=== PATIENT | male | born 1960 | race Caucasian/White ===

== ENCOUNTER → 2016-10-22 | Outpatient (CLI) | payer BC ==
[2016-10-22 11:38] LABS: Basophils # (A) 0.1 k/uL (0-0.2); Basophils % (A) 1 %; CH 32.6; CHCM 33.7; Eosinophils # (A) 0.1 k/uL (0-0.7); Eosinophils % (A) 2 %; HCT 54.3 % (39.0-53.0); HGB 18.1 gm/dL (13.0-17.5); Luc # (Auto) 0.17; Luc % (Auto) 3; Lymphocytes # (A) 1.7 k/uL (1.0-4.8); Lymphocytes % (A) 29 %; MCH 32.4 pg (25.0-35.0); MCHC 33.3 g/dL (31.0-37.0); MCV 97.2 fL (80.0-100.0); Mean Platelet Volume 8.2; Monocytes # (A) 0.4 k/uL (0-1.0); Monocytes % (A) 7 %; Neutrophils # (A) 3.4 k/uL (1.3-7.7); Neutrophils % (A) 58 %; RBC 5.59 m/uL (4.30-5.90); RDW 14.4 % (11.5-15.5); WBC 5.9 k/uL (3.8-10.6)
[2016-10-22 11:46] LABS: ALT 52 U/L (21-72); AST 30 U/L (17-59); Alkaline Phosphatase 64 U/L (38-126); Anion Gap 13 mmol/L; Blood Urea Nitrogen 19 mg/dL (9-20); Calcium 9.7 mg/dL (8.4-10.2); Carbon Dioxide 26 mmol/L (22-30); Chloride 103 mmol/L (98-107); Cholesterol 181 mg/dL (<200); Glucose 83 mg/dL (74-99); HDL Cholesterol 64 mg/dL (40-60); Non-African American GFR(MDRD) >60 (>60 ml/min/1.73 sqM); Potassium 4.5 mmol/L (3.5-5.1); Sodium 142 mmol/L (137-145); Total Bilirubin 0.9 mg/dL (0.2-1.3); Total Protein 7.5 g/dL (6.3-8.2); Triglycerides 111 mg/dL (<150)
[2016-10-22 12:15] LABS: Prostate Specific Antigen 1.09 ng/mL (0.00-4.00)
[2016-10-22 13:06] LABS: Hepatitis C Virus IgG Ab Negative (Negative); Hepatitis C Virus IgG Index 0.04
== END | disposition home or self-care (01) ==
LOC: LABWHC1 08:11
PROVIDERS: ATTEND Internal Medicine
DX: Z00.00 Encounter for general adult medical examination without abnormal findings (principal); Z13.9 Encounter for screening, unspecified; Z12.5 Encounter for screening for malignant neoplasm of prostate
CPT/HCPCS: 36415; 80053; 80061; 84153; 85025; 86803

== ENCOUNTER 2017-05-21 07:58 | Inpatient (IN) | payer BC ==
[2017-05-21] MEDS ORDERED: SODIUM CHLORIDE 0.9% 1,000 ML IV STA ×2 (08:05)
[2017-05-21] MEDS ORDERED: RX INFO: IV CONTRAST WAS GIVEN 1 EACH MISC MISCELLANE PRN (08:05)
[2017-05-21 08:32] LABS: Basophils % (A) 1 %; Eosinophils # (A) 0.1 k/uL (0-0.7); Eosinophils % (A) 2 %; HGB 16.1 gm/dL (13.0-17.5); Lymphocytes # (A) 1.5 k/uL (1.0-4.8); Lymphocytes % (A) 30 %; MCH 31.1 pg (25.0-35.0); MCHC 31.6 g/dL (31.0-37.0); MCV 98.2 fL (80.0-100.0); Mean Platelet Volume 7.6; Monocytes # (A) 0.4 k/uL (0-1.0); Monocytes % (A) 7 %; Neutrophils % (A) 58 %; Platelet Count 204 k/uL (150-450); RBC 5.19 m/uL (4.30-5.90); RDW 12.9 % (11.5-15.5); WBC 5.2 k/uL (3.8-10.6)
[2017-05-21 08:56] LABS: Albumin 3.9 g/dL (3.5-5.0); Anion Gap 9 mmol/L; Calcium 9.4 mg/dL (8.4-10.2); Carbon Dioxide 24 mmol/L (22-30); Chloride 107 mmol/L (98-107); Glucose 115 mg/dL (74-99); Sodium 140 mmol/L (137-145); Total Bilirubin 1.3 mg/dL (0.2-1.3)
[2017-05-21 08:57] LABS: Blood Urea Nitrogen 19 mg/dL (9-20); Magnesium 1.9 mg/dL (1.6-2.3); Phosphorus 3.3 mg/dL (2.5-4.5); Potassium 4.8 mmol/L (3.5-5.1)
[2017-05-21 08:58] LABS: ALT 32 U/L (21-72); AST 39 U/L (17-59); Alkaline Phosphatase 49 U/L (38-126)
--- NOTE | 2017-05-21 09:00 | CT ---
EXAMINATION TYPE: CT brain lynn loera con DATE OF EXAM: 05/21/2017 COMPARISON: NONE HISTORY: syncope CT DLP: 1586.8 mGycm Automated exposure control for dose reduction was used. TECHNIQUE: CT scan of the head and cervical spine are performed without contrast. FINDINGS: BRAIN: Central structures are midline. There is no evidence of hydrocephalus. No acute focal lesion, mass effect or midline shift is seen. I do not see evidence of intracranial blood. Visualized portions of the paranasal sinuses and mastoids are clear. The bony calvarium is intact. IMPRESSION: NORMAL CT SCAN OF THE BRAIN. CERVICAL SPINE: Visualized portions of the lungs are clear. Prevertebral soft tissues are normal. There is a minimally displaced fracture of the anterior inferior corner of the C4 vertebral body. Ali gnment is maintained. Atlantoaxial relationships are normal. There is degenerative disc disease and h ypertrophic spondylosis at C5-6. There is uncovertebral joint disease present at C5-6 as well as C3-4 . No definite protrusion is seen. No additional fractures are identified. IMPRESSION: 1. ANTERIOR-INFERIOR CORNER FRACTURE OF THE C4 VERTEBRAL BODY WITH MINIMAL DISPLACEMENT. 2. DEGENERATIVE CHANGE. CODE A: INITIAL ASSESSMENT FOR CLOSED FRACTURE.
--- NOTE | 2017-05-21 09:05 | CT ---
EXAMINATION TYPE: CT angio chest DATE OF EXAM: 05/21/2017 8:50 AM COMPARISON: NONE HISTORY: syncope CT DLP: 5.6 (CTA chest and CT abd pelvis) mGycm Automated exposure control for dose reduction was used. CONTRAST: CTA scan of the thorax is performed with IV Contrast, patient injected with 100 mL of Omnipaque 350, pulmonary embolism protocol. . FINDINGS: There is minimal dependent atelectasis at the lung bases. The lungs are otherwise clear. There is no significant axillary adenopathy. There is some shotty adenopathy in the aortopulmonary wi ndow. There is no significant hilar adenopathy. There is no evidence of pulmonary embolus. The aorta is normal in caliber without evidence of dissection. The heart is upper limits of normal in size. There is no pleural or pericardial fluid. No acute osseous lesion is seen. IMPRESSION: ESSENTIALLY NORMAL CT SCAN OF THE CHEST.
--- NOTE | 2017-05-21 09:10 | CT ---
EXAMINATION TYPE: CT abdomen pelvis w con DATE OF EXAM: 05/21/2017 REFERENCE: NONE HISTORY: Pain HISTORY: Syncope REFERENCE: NONE CT DLP: 2045.60 mGy Automated exposure control for dose reduction was used. TECHNIQUE: Helical acquisition through the abdomen and pelvis was obtained without oral contrast and following intravenous administration of 100 mL of Omnipaque 350. The data was reformatted in axial, c oronal and sagittal projections. FINDINGS: There is mild dependent atelectasis at the lung bases. There is no pleural or pericardial fluid. The heart is minimally enlarged. Within the abdomen, the liver, spleen and gallbladder are normal. Both adrenal glands are normal. Both kidneys demonstrate function and appear morphologically normal. The pancreas is unremarkable. There is no significant retroperitoneal, iliac or inguinal adenopathy. The bladder is unremarkable. There are scattered diverticula within the sigmoid colon. There is no radiographic evidence of divert iculitis. There is collapse of the distal transverse colon. This makes assessment of bowel wall thickness diffi cult. The appendix is not visualized with certainty. Small bowel loops are normal. There is no free fluid and no free air identified. No acute osseous lesion is seen. There is mild degenerative disc disease and hypertrophic spondylosis in the lumbar spine most marked at L2-3 and L3-4. IMPRESSION: 1. NO ACUTE POSTTRAUMATIC ABNORMALITY. 2. COLLAPSE OF THE DISTAL TRANSVERSE COLON. PLEASE CORRELATE CLINICALLY TO EXCLUDE COLITIS. 3. MILD CARDIOMEGALY. 4. DEGENERATIVE CHANGES WITHIN THE SPINE.
[2017-05-21 09:20] LABS: Creatine Kinase MB 0.9 ng/mL (0.0-2.4); Troponin I 0.013 ng/mL (0.000-0.034)
[2017-05-21 09:33] LABS: D-Dimer 1.06 mg/L FEU (<0.60); INR 1.1 (<1.2); Partial Thromboplastin Time 21.7 sec (22.0-30.0); Prothrombin Time 10.7 sec (9.0-12.0)
[2017-05-21] MEDS ORDERED: ASPIRIN 81 MG PO STA (09:37)
[2017-05-21] MEDS ORDERED: NITROGLYCERIN SL TABS 0.4 MG TAB SUBLINGUAL PRN (09:37)
--- NOTE | 2017-05-21 09:37 | ED ---
General Adult HPI - General Chief complaint: Syncope Stated complaint: syncope Time Seen by Provider: 05/21/17 08:04 Source: patient, EMS, RN notes reviewed, old records reviewed Mode of arrival: EMS Limitations: no limitations - History of Present Illness Initial comments: This is a 56-year-old male to the ER for evaluation. Patient does say for evaluation regarding syncopal event. EMS was called the patient's house for syncopal event syncopal and falling forward after getting out of bed this morning. Patient did fall forward landing on his head complaining of some facial pain and some neck pain. Patient has no medical history takes no medications. Does not smoke. Does not drink. No drugs. EMS states patient was very diaphoretic upon arrival, but he was awake and alert. Patient this time denies any complaints such for mild facial pain, he does deny any chest pain no shortness of breath no abdominal pain. - Related Data Home Medications Medication Instructions Recorded Confirmed Cialis (Unknown Dose) 0.5 - 1 tab PO DAILY PRN 05/21/17 05/21/17 Fluticasone Nasal [place] [Flonase 1 - 2 spray EA NOSTRIL DAILY PRN 05/21/1705/21 Nasal [place]] Folic Acid 1 mg PO DAILY 05/21/17 05/21/17 Juice Plus 1 cap PO DAILY 05/21/17 05/21/17 Levofloxacin [Levaquin] 500 mg PO DAILY 05/21/17 05/21/17 Methotrexate Sodium [Methotrexate] 12.5 mg PO RODGERS 05/21/17 05/21/17 Allergies Allergy/AdvReac Type Severity Reaction Status Date / Time No Known Allergies Allergy Verified 05/21/17 08:38 Review of Systems ROS Statement: Those systems with pertinent positive or pertinent negative responses have been documented in the HPI. ROS Other: All systems not noted in ROS Statement are negative. Past Medical History Additional Past Medical History / Comment(s): psoriasis History of Any Multi-Drug Resistant Organisms: None Reported Past Surgical History: Tonsillectomy Additional Past Surgical History / Comment(s): varicose vein stripping Past Psychological History: No Psychological Hx Reported Smoking Status: Never smoker Past Alcohol Use History: Occasional Past Drug Use History: None Reported General Exam Limitations: no limitations General appearance: alert, in no apparent distress Head exam: Present: atraumatic, normocephalic, normal inspection Eye exam: Present: normal appearance, PERRL, EOMI. Absent: scleral icterus, conjunctival injection, periorbital swelling ENT exam: Present: normal exam, mucous membranes moist Neck exam: Present: normal inspection. Absent: tenderness, meningismus, lymphadenopathy Respiratory exam: Present: normal lung sounds bilaterally. Absent: respiratory distress, wheezes, rales, rhonchi, stridor Cardiovascular Exam: Present: regular rate, irregular rhythm, normal heart sounds. Absent: systolic murmur, diastolic murmur, rubs, gallop, clicks GI/Abdominal exam: Present: soft, normal bowel sounds. Absent: distended, tenderness, guarding, rebound, rigid Extremities exam: Present: normal inspection, full ROM, normal capillary refill. Absent: tenderness, pedal edema, joint swelling, calf tenderness Back exam: Present: normal inspection Neurological exam: Present: alert, oriented X3, CN II-XII intact Psychiatric exam: Present: normal affect, normal mood Skin exam: Present: warm, dry, intact, normal color. Absent: rash Course Vital Signs 05/21/17 05/21/17 08:01 09:08 Temperature 97 F L Pulse Rate 84 77 Respiratory 16 16 Rate Blood Pressure 112/76 113/75 O2 Sat by Pulse 98 99 Oximetry - Reevaluation(s) Reevaluation #1: 05/21/17 09:36 Is in no acute distress no chest pain Reevaluation #2: 05/21/17 09:36 Patient family updated regarding results, questions are answered EKG Findings - EKG Comments: EKG Findings:: EKG shows atrial fibrillation rate of 77, QRS 88, QTC 409 Medical Decision Making - Medical Decision Making 56 male the ER for evaluation. Patient presents today for evaluation regards to syncope and collapse, patient did sustain cervical vertebral body Fracture from fall on no acute pain, no neurological deficit fracture is stable, patient does have new onset atrial fibrillation with RVR and will admit for cardiology evaluation - Lab Data Result diagrams: 05/21/17 08:15 05/21/17 08:15 Lab Results 05/21/17 05/21/17 05/21/17 Range/Units 08:15 08:15 08:15 WBC 5.2 (3.8-10.6) k/uL RBC 5.19 (4.30-5.90) m/uL Hgb 16.1 (13.0-17.5) gm/dL Hct 51.0 (39.0-53.0) % MCV 98.2 (80.0-100.0) fL MCH 31.1 (25.0-35.0) pg MCHC 31.6 (31.0-37.0) g/dL RDW 12.9 (11.5-15.5) % Plt Count 204 (150-450) k/uL Neutrophils % 58 % Lymphocytes % 30 % Monocytes % 7 % Eosinophils % 2 % Basophils % 1 % Neutrophils # 3.0 (1.3-7.7) k/uL Lymphocytes # 1.5 (1.0-4.8) k/uL Monocytes # 0.4 (0-1.0) k/uL Eosinophils # 0.1 (0-0.7) k/uL Basophils # 0.0 (0-0.2) k/uL Sodium 140 (137-145) mmol/L Potassium 4.8 (3.5-5.1) mmol/L Chloride 107 (98-107) mmol/L Carbon Dioxide 24 (22-30) mmol/L Anion Gap 9 mmol/L BUN 19 (9-20) mg/dL Creatinine 1.02 (0.66-1.25) mg/dL Est GFR (MDRD) Af Amer >60 (>60 ml/min/1.73 sqM) Est GFR (MDRD) Non-Af >60 (>60 ml/min/1.73 sqM) Glucose 115 H (74-99) mg/dL Plasma Lactic Acid Dejuan 1.5 (0.7-2.0) mmol/L Calcium 9.4 (8.4-10.2) mg/dL Phosphorus 3.3 (2.5-4.5) mg/dL Magnesium 1.9 (1.6-2.3) mg/dL Total Bilirubin 1.3 (0.2-1.3) mg/dL AST 39 (17-59) U/L ALT 32 (21-72) U/L Alkaline Phosphatase 49 (38-126) U/L Total Protein 7.0 (6.3-8.2) g/dL Albumin 3.9 (3.5-5.0) g/dL - Radiology Data Radiology results: report reviewed (CT brain C-spine shows positive C4 fracture cervical body stable, CT chest CT abdomen and pelvis negative for acute disease) , image reviewed Disposition Clinical Impression: Cervical spine fracture, Syncope, Fall, New onset atrial fibrillation Disposition: ADMITTED IP TO THIS HOSP Condition: Good Referrals: Skyler Steven MD [Primary Care Provider] - 1-2 days
[2017-05-21 16:30] LABS: Creatine Kinase 73 U/L (55-170)
[2017-05-21 16:43] LABS: Creatine Kinase MB 0.8 ng/mL (0.0-2.4); Troponin I <0.012 ng/mL (0.000-0.034)
[2017-05-21 20:56] LABS: Creatine Kinase 63 U/L (55-170)
[2017-05-21] MEDS ORDERED: METOPROLOL TARTRATE 25 MG TAB PO SCH (21:00)
[2017-05-21 21:02] LABS: T4, Free (Free Thyroxine) 1.04 ng/dL (0.78-2.19)
[2017-05-21] MEDS ORDERED: FLUTICASONE 50MCG/SPRAY NASAL 16GM EA NOSTRIL PRN (21:07)
[2017-05-21] MEDS ORDERED: ALPRAZolam 0.25 MG TAB PO PRN (21:08)
[2017-05-21] MEDS ORDERED: TEMAZEPAM 15 MG CAP PO PRN (21:08)
[2017-05-21] MEDS ORDERED: HYDROmorphone 0.5 MG/0.5 ML SYRINGE IVP PRN (21:08)
[2017-05-21] MEDS ORDERED: HYDROcodone/APAP 5-325MG 1 EACH TAB PO PRN (21:08)
[2017-05-21 21:09] LABS: Creatine Kinase MB 0.7 ng/mL (0.0-2.4); Troponin I <0.012 ng/mL (0.000-0.034)
[2017-05-21] MEDS ORDERED: METHOTREXATE SODIUM 2.5 MG TAB PO SCH (21:15)
--- NOTE | 2017-05-21 23:43 | HP ---
HISTORY AND PHYSICAL CHIEF COMPLAINT: Syncope. HISTORY: This 56-year-old gentleman with a past medical history of multiple medical problems including psoriasis, varicose vein stripping, being followed by Dr. Steven in the outpatient setting. Apparently went to the bathroom this morning and the patient passed out without any premonitory symptoms. The patient woke up immediately, but after that the patient was feeling dizzy and the patient was white pale according to the and EMS was called. The patient taken to [facility] and admitted for further evaluation and treatment. The patient was complaining of some neck discomfort also and some facial pain. In the emergency room, white count is normal. D- dimer is 1.06 and glucose 115. TSH was normal. The EKG showed atrial fibrillation with some pauses and the patient also had a CT of the head and cervical spine which showed anterior inferior coronal fracture of the C4 vertebra with minimal displacement and degenerative joint disease. Abdominal pelvis CAT scan was also done which did not show any acute abnormality. A chest CTA was done to rule out the possibility of pulmonary embolism, which is normal. The patient admitted for further evaluation and treatment. There is no history of fever, rigors or chills. No history of headache. No history of any chest pain, palpitations, hematochezia or melena at this time. PAST MEDICAL HISTORY: Past medical history of psoriasis, tonsillectomy, recent upper respiratory infection, varicose vein stripping. MEDICATIONS: Medications prior to admission: 1. Juice Plus 1 capsule daily. 2. Cialis p.r.n. 3. Methotrexate 12.5 mg Monday for psoriasis. 4. Flonase 1-2 sprays p.r.n. 5. Levaquin 500 mg p.o. daily. 6. Folic acid 1 mg p.o. daily. ALLERGIES: None. FAMILY HISTORY: History of breast cancer in the family. SOCIAL HISTORY: No history of smoking. No history of alcohol intake. REVIEW OF SYSTEMS: ENT: As mentioned earlier. Cardiovascular as mentioned earlier. Respiratory: As mentioned earlier. No cough or hemoptysis. GI no nausea or vomiting. no dysuria. Nervous system: No numbness, weakness. Allergy/Immunology: No asthma or hayfever. Musculoskeletal as mentioned earlier. Hematology/Oncology: No history of anemia. Endocrine: No history of diabetes or hypothyroidism. Constitutional: As mentioned earlier. Dermatology: Negative. Rheumatology: Negative. Psychiatric: As mentioned earlier. PHYSICAL EXAMINATION: Alert oriented x2. Pulse 51, blood pressure 120/88, respirations 16, temperature 98.2, pulse ox 94% on room air. HEENT: Conjunctivae normal. Neck is no jugular venous distention. No carotid bruit. No lymph node enlargement. Cardiovascular S1, S2 irregular. No S3 and no S4. Respiratory: Breath sounds diminished in the bases. No rhonchi and no crackles. ABDOMEN: Soft, nontender. No mass palpable. Legs no edema and no swelling. Central nervous system: Higher functions normal. No focal motor or sensory deficits. Lymphatics: No lymph nodes palpable in the neck, axillae or groin. Skin no ulcer, rash or bleeding. LABS: CBC within normal limits. D-dimer is 1.06 and glucose 115. ASSESSMENT: 1. Syncope and fall for evaluation, possible cardiac arrhythmia. 2. Atrial fibrillation, probably new onset. 3. Anterior inferior corner fracture of the C4 vertebra with a minimal displacement in the CT scan. 4. History of tonsillectomy. 5. History of psoriasis. RECOMMENDATIONS AND DISCUSSION: In this 56-year-old gentleman who presented with multiple complex medical issues , we will monitor the patient closely. Continue the current medications, continue symptomatic treatment. We will initiate beta blockers. Closely follow with Cardiology. Anticoagulants are on hold because of history of recent fracture. Orthopedic consultation will be done. Otherwise CT scan of the chest is normal. We will follow. We will continue to monitor. Overall prognosis guarded and further recommendations to follow. The plan is discussed with the patient and the patient understands and agrees. A copy of dictation being forwarded to Dr. Steven who is the primary physician. MMODL / IJN: [id number] / MTDD
[2017-05-22 06:04] LABS: Basophils % (A) 1 %; Eosinophils # (A) 0.1 k/uL (0-0.7); Eosinophils % (A) 1 %; HCT 52.7 % (39.0-53.0); HGB 16.9 gm/dL (13.0-17.5); Lymphocytes # (A) 2.3 k/uL (1.0-4.8); Lymphocytes % (A) 28 %; MCHC 32.1 g/dL (31.0-37.0); MCV 96.5 fL (80.0-100.0); Mean Platelet Volume 7.1; Monocytes # (A) 0.6 k/uL (0-1.0); Monocytes % (A) 7 %; Neutrophils # (A) 5.1 k/uL (1.3-7.7); Neutrophils % (A) 62 %; Platelet Count 242 k/uL (150-450); RBC 5.46 m/uL (4.30-5.90); RDW 13.3 % (11.5-15.5); WBC 8.2 k/uL (3.8-10.6)
[2017-05-22 06:20] LABS: Anion Gap 13 mmol/L; Blood Urea Nitrogen 15 mg/dL (9-20); Calcium 9.5 mg/dL (8.4-10.2); Carbon Dioxide 27 mmol/L (22-30); Chloride 102 mmol/L (98-107); Cholesterol 185 mg/dL (<200); Glucose 107 mg/dL (74-99); HDL Cholesterol 64 mg/dL (40-60); LDL Cholesterol,Calculated 98 mg/dL (0-99); Potassium 4.2 mmol/L (3.5-5.1); Sodium 142 mmol/L (137-145); Triglycerides 113 mg/dL (<150)
[2017-05-22] MEDS ORDERED: PANTOPRAZOLE 40 MG TABLET PO SCH (07:30)
[2017-05-22 08:49] VITALS: RESP 18
[2017-05-22] MEDS ORDERED: ASPIRIN 325 MG TAB PO SCH (09:00)
[2017-05-22] MEDS ORDERED: LEVOFLOXACIN 500 MG TAB PO SCH (09:00)
[2017-05-22] MEDS ORDERED: METOPROLOL TARTRATE 12.5 MG TAB PO SCH (09:30)
--- NOTE | 2017-05-22 10:53 | ECHOF ---
Referral Reason:syncope MEASUREMENTS -------- HEIGHT: 182.9 cm WEIGHT: 97.1 kg BP: RVIDd: 3.1 cm (< 3.3) IVSd: 1.1 cm (0.6 - 1.1) LVIDd: 4.6 cm (3.9 - 5.3) LVPWd: 1.0 cm (0.6 - 1.1) IVSs: 1.6 cm LVIDs: 3.2 cm LVPWs: 0.8 cm LA Diam: 3.5 cm (2.7 - 3.8) Ao Diam: 4.3 cm (2.0 - 3.7) AV Cusp: 2.3 cm (1.5 - 2.6) LA Diam: 3.8 cm (2.7 - 3.8) MV EXCURSION: 16.312 mm (> 18.000) MV EF SLOPE: 94 mm/s (70 - 150) EPSS: 0.2 cm MV E Anand: 0.59 m/s MV DecT: 209 ms MV A Anand: 0.52 m/s MV E/A Ratio: 1.13 RAP: 5.00 mmHg RVSP: 26.52 mmHg FINDINGS -------- Sinus rhythm. This was a technically good study. The left ventricular size is normal. There is borderline concentric left ventricular hypertrophy. Overall left ventricular systolic function is normal with, an EF between 55 - 60 %. The right ventricle is normal in size. , and the LA measures 3.5cm. The right atrial size is normal. The aortic valve is trileaflet, and appears structurally normal. No aortic stenosis or regurgitation. Mild mitral annular calcification present. Mild mitral regurgitation is present. Mild tricuspid regurgitation present. There is no evidence of pulmonary hypertension. The right v entricular systolic pressure, as measured by Doppler, is 26.52mmHg. Trace/mild (physiologic) pulmonic regurgitation. Aortic Root is mildly dilated and measures 4.3cm. There is no pericardial effusion. CONCLUSIONS -------- 1. The left ventricular size is normal. 2. There is borderline concentric left ventricular hypertrophy. 3. Overall left ventricular systolic function is normal with, an EF between 55 - 60 %. 4. The aortic valve is trileaflet, and appears structurally normal. No aortic stenosis or regurgitati on. 5. Mild mitral annular calcification present. 6. Mild mitral regurgitation is present. 7. Mild tricuspid regurgitation present. 8. There is no evidence of pulmonary hypertension. 9. The right ventricular systolic pressure, as measured by Doppler, is 26.52mmHg. 10. Trace/mild (physiologic) pulmonic regurgitation. 11. Aortic Root is mildly dilated and measures 4.3cm. 12. There is no pericardial effusion. UTILITY PORTER: Tamiko Angulo RDCS
--- NOTE | 2017-05-22 10:56 | CONS ---
CONSULTATION This is a 56-year-old retired gentleman who has psoriasis and takes methotrexate and folic acid. He is otherwise fairly active and has no major symptoms and yesterday he had an unusual situation when he woke up and tried to go to the bathroom, he remembers walking to the bathroom and then totally blacked out and passed out. He has no premonition. This did not happen before. This is the first time. He fell on his face and there is a small area of trauma over his nose without any bony injury. However, cervical spine x-rays suggest a nondisplaced fracture of the 4th vertebra. We are awaiting and input from Dr. Montero who has been consulted. This gentleman does not take any medications. He did not have any alcohol the night before. Upon arrival to the emergency room, he was shaken and alert but diaphoretic, complained of facial pain and has no neck pain whatsoever. He was already recovering from some sinusitis, was placed on Levaquin. At the time of my evaluation, he is virtually asymptomatic. Another interesting thing was he was in atrial fibrillation with a rate that was somewhat variable when he came in. His heart rate upon arrival was in the range of about 100 beats per minute, irregular, but he received 25 mg of metoprolol tartrate b.i.d. The rate is in the 80s. He is comfortable resting at the time of my evaluation. PAST MEDICAL HISTORY: Unremarkable for any major medical problems. He does have psoriasis. He has history of tonsillectomy and also has varicose vein stripping in both his lower extremities. SOCIAL HISTORY: He uses alcohol occasionally. Does not smoke. Has no caffeine intake. MEDICATIONS: Include methotrexate 12.5 mg every week, folic acid. ALLERGIES: None. He also is on a course of Levaquin at this time. EXAMINATION: Pressure is 130/80. No orthostatic changes. Pulse rate is in the 80s, irregular. HEENT unremarkable. Fundus was not examined by me. NECK: Supple. There is no JVD. I do not hear a carotid bruit. Heart exam reveals S1, S2 with a regular rhythm. Lungs revealed decent air entry. Abdomen is soft, nontender. Lower extremities reveal palpable pulses. No edema. Central nervous system is normal. EKG revealed atrial fibrillation, controlled ventricular rate, nonspecific ST-T changes. IMPRESSION: 1. Syncope. The possibility of atrial fib with a slow ventricular rate should be considered, although we have not seen any bradycardia of significance here. 2. Cervical spine C4 fracture after fall with syncope. 3. History of psoriasis on methotrexate and folic acid. 4. Recovering from sinusitis on Levaquin. RECOMMENDATIONS: I am recommending that we reduce the metoprolol to just 12.5 mg every morning, place a 2 week event monitor so we can see if he has any bradycardia. If okay with orthopedic surgery/Dr. Montero, we will initiate him on Eliquis 5 mg b.i.d. The patient does not have any orthostatic changes. He may require a pacemaker down the road if he demonstrates bradycardia. I discussed my thoughts in detail with the patient and this note will go to Dr. Skyler Stevne, his primary care physician. An echo has been ordered and we will review the findings. He also had a chest CTA performed because of a modestly elevated D-dimer and this was a normal study without any evidence of pulmonary embolism or any aortic pathology. His thyroid functions are normal and cholesterol profile is good. MMODL / IJN: [id number] /
[2017-05-22] MEDS ORDERED: FOLIC ACID 1 MG TAB PO SCH (12:00)
[2017-05-22 14:05] VITALS: TEMP 98.7
--- NOTE | 2017-05-22 17:01 | CDI ---
Last Revision, March 2017 Documentation Clarification Form Date: 05/22/2017 4:43:00 PM From: Olga Her RN, CCDS Admit Date: 05/21/2017 9:38:00 AM Patient Name: Dante Elena Visit Number: [id number] Discharge Date: ATTENTION: The Clinical Documentation Specialists (CDI) and [facility] Coding Staff appreciate your assistance in clarifying documentation. Please respond to the clarification below the line at the bottom and electronically sign. The CDI & [facility] Coding staff will review the response and follow-up if needed. Please note: Queries are made part of the Legal Health Record. If you have any questions, please contact the author of this message via ITS. Dr. Jerome Roblero Atrial fibrillation is documented in the ER evaluation and your consult on "He was in atrial fibrillation with a rate that was somewhat variable when he came in." History/Risk Factors: Psoriasis Clinical Indicators: Present for evaluation regarding syncopal event at home. EMS notes patient was diaphoretic upon arrival, but was awake and alert. No chest pain, no shortness or breath. Vital signs on admission: 112/76 84 16 97.0 98 % RA EKG: Atrial fibrillation rate of 77-100 irregular ECHO: sinus rhythm, EF 55-60 % Treatment: Metoprolol PO Eliquis PO Telemetry monitoring In your professional opinion, can you please clarify the type of atrial fibrillation, if known? Chronic/Permanent Paroxysmal Persistent Other, please specify Unable to determine Please continue to document in your progress notes and discharge summary in order to capture severity of illness and risk of mortality. Include clinical findings that support your diagnosis. MTDD
[2017-05-22 17:04] VITALS: BP 112/77; PULSE 79
[2017-05-22] MEDS ORDERED: APIXABAN 5 MG TAB PO SCH (21:00)
--- NOTE | 2017-05-22 22:37 | DS ---
DISCHARGE SUMMARY FINAL DIAGNOSES: 1. Syncope with fall, possibly secondary to cardiac arrhythmia. 2. Paroxysmal atrial fibrillation, new onset. 3. Anterior-inferior corner cervical fracture of C4 with minimal displacement on the CT scan. 4. History of tonsillectomy. 5. History of psoriasis. 6. Mild aortic dilatation on the two-dimensional echocardiogram. 7. Abrasion around the nose secondary to fall. DISCHARGE DISPOSITION: The patient will be discharged in stable condition with guarded prognosis. Discharge will be after clearance from Cardiology as well as Orthopedic Surgery. HISTORY OF PRESENT ILLNESS: This is a 56-year-old gentleman with a past medical history of multiple medical problems who was admitted with a fall as well as new-onset atrial fibrillation. He was treated symptomatically and improved significantly. A 2D echo with Doppler showed some mild aortic root dilatation at 4.3 cm and minimal mitral regurgitation. Cardiology saw the patient and recommended event monitoring and also low-dose Lopressor with Eliquis. I also discussed with Orthopedic Surgery. Dr. Montero will evaluate him tomorrow. A hard cervical collar has been recommended. On exam, vitals are stable. CARDIOVASCULAR SYSTEM: S1, S2 muffled. ABDOMEN: Soft. NERVOUS SYSTEM: No focal deficit. DISCHARGE ADVICE AND MEDICATIONS: 1. Diet is cardiac. 2. Activity limited until followup. 3. Follow up with Dr. Steven in 2 to 3 days. 4. Follow up with Orthopedic Surgery tomorrow with Dr. Montero. 5. Follow up with Dr. Milan Roblero as advised. 6. Eliquis 5 mg p.o. b.i.d. 7. Fluticasone nasal spray p.r.n. 8. Folic acid 1 mg p.o. daily. 9. Juice Plus as before. 10.Methotrexate 12.5 mg p.o. on Monday. 11.Lopressor 12.5 mg b.i.d. 12.Follow-up labs CBC, BMP with Dr. Steven's office. Once again, the patient is being discharged in stable condition with guarded prognosis. MMODL / IJN: [id number] / MTDD
== END 2017-05-22 16:50 | disposition home or self-care (01) | DRG 309 ==
LOC: EC 07:58 → 6SEL 09:38
PROVIDERS: ADMIT Hospitalist; ATTEND Hospitalist
DX: I48.0 Paroxysmal atrial fibrillation (principal); S12.300A Unspecified displaced fracture of fourth cervical vertebra, initial encounter for closed fracture; I77.810 Thoracic aortic ectasia; S00.31XA Abrasion of nose, initial encounter; L40.9 Psoriasis, unspecified; W19.XXXA Unspecified fall, initial encounter
CPT/HCPCS: 36415; 70450; 71275; 72125; 74177; 80048; 80053; 80061; 82550; 82553; 83605; 83735; 84100; 84439; 84443; 84484; 85025; 85379; 85610; 85730; 93005; 93270; 93271; 93306; 96360; 96361; 99285

== ENCOUNTER → 2017-07-19 | Outpatient (CLI) | payer BC ==
[2017-07-19 10:02] LABS: HCT 50.4 % (39.0-53.0); HGB 16.9 gm/dL (13.0-17.5); MCHC 33.6 g/dL (31.0-37.0); MCV 92.5 fL (80.0-100.0); Mean Platelet Volume 7.1; Platelet Count 242 k/uL (150-450); RBC 5.45 m/uL (4.30-5.90); RDW 13.4 % (11.5-15.5); WBC 6.5 k/uL (3.8-10.6)
[2017-07-19 10:08] LABS: ALT 46 U/L (21-72); AST 29 U/L (17-59)
== END | disposition home or self-care (01) ==
LOC: LABWHC1 09:20
PROVIDERS: ATTEND Dermatology Dermatopathology
DX: L40.0 Psoriasis vulgaris (principal); L57.0 Actinic keratosis; Z79.899 Other long term (current) drug therapy
CPT/HCPCS: 36415; 84450; 84460; 85027

== ENCOUNTER 2017-08-27 14:21 | Emergency (ER) | payer BC ==
[2017-08-27 14:37] VITALS: BP 132/79; PULSE 63; RESP 16; TEMP 97.8
--- NOTE | 2017-08-27 15:09 | ED ---
General Adult HPI - General Chief complaint: Wound/Laceration Stated complaint: Lac/Leg Time Seen by Provider: 08/27/17 14:40 Source: patient, RN notes reviewed Mode of arrival: ambulatory Limitations: no limitations - History of Present Illness Initial comments: 56-year-old male presents to the emergency department for a chief complaint of skin tear 1 hour. Patient states he hit it against a log while doing yardwork. Patient states his tetanus is up-to-date in the past 2 years. Patient denies any other injuries at this time. Patient does not have any difficulty walking on the left lower extremity. No pain in the foot knee or hip. Patient denies falling or hitting his head. Patient has no other complaints at this time including shortness of breath, chest pain, abdominal pain, nausea or vomiting, headache, or visual changes. - Related Data Home Medications Medication Instructions Recorded Confirmed Fluticasone Nasal [place] [Flonase 1 - 2 spray EA NOSTRIL DAILY PRN 05/21/1708/27 Nasal [place]] Folic Acid 1 mg PO DAILY 05/21/17 08/27/17 Juice Plus 1 cap PO DAILY 05/21/17 08/27/17 Methotrexate Sodium [Methotrexate] 12.5 mg PO RODGERS 05/21/17 08/27/17 Previous Rx's Medication Instructions Recorded Apixaban [Eliquis] 5 mg PO BID #60 tab 05/22/17 Levofloxacin [Levaquin] 500 mg PO DAILY #0 05/22/17 Metoprolol Tartrate [Lopressor] 12.5 mg PO BID #60 dose 05/22/17 Allergies Allergy/AdvReac Type Severity Reaction Status Date / Time No Known Allergies Allergy Verified 08/27/17 14:37 Review of Systems ROS Statement: Those systems with pertinent positive or pertinent negative responses have been documented in the HPI. ROS Other: All systems not noted in ROS Statement are negative. Past Medical History Additional Past Medical History / Comment(s): psoriasis History of Any Multi-Drug Resistant Organisms: None Reported Past Surgical History: Tonsillectomy Additional Past Surgical History / Comment(s): varicose vein stripping Additional Past Anesthesia/Blood Transfusion Reaction / Comment(s): never recieved blood Past Psychological History: No Psychological Hx Reported Smoking Status: Never smoker Past Alcohol Use History: Occasional Past Drug Use History: None Reported - Past Family History Mother Family Medical History: Cancer Additional Family Medical History / Comment(s): breast Father Family Medical History: No Reported History Additional Family Medical History / Comment(s): his father mi General Exam Limitations: no limitations Head exam: Present: atraumatic, normocephalic, normal inspection Eye exam: Present: normal appearance ENT exam: Present: normal exam, normal external ear exam Neck exam: Present: normal inspection, full ROM. Absent: tenderness Respiratory exam: Present: normal lung sounds bilaterally. Absent: respiratory distress, wheezes, rales, rhonchi, stridor Cardiovascular Exam: Present: regular rate, normal rhythm, normal heart sounds. Absent: systolic murmur, diastolic murmur, rubs, gallop, clicks Extremities exam: Present: full ROM (Full range of motion of the left knee ankle and foot.), tenderness (Tenderness over the skin tear but no tenderness over the rest of the left lower extremity.), other (There is a 3 cm skin tear on the anterior left esparza. The skin tear is shallow and cannot be sutured effectively. There is a small 2 cm x 2 cm contusion noted over the esparza as well.) Course Vital Signs 08/27/17 14:34 Temperature 97.8 F Pulse Rate 63 Respiratory 16 Rate Blood Pressure 132/79 O2 Sat by Pulse 97 Oximetry Medical Decision Making - Medical Decision Making 56-year-old male presents to the emergency department for a chief complaint of skin tear over the left esparza times one hour ago. Patient states he hit it on a log. Tetanus is up-to-date. Patient also has a contusion near the 3 cm skin tear on the left esparza. Patient was offered x-ray which she refuses. He states he did not hit it hard enough to break it and he does not want an x-ray. Patient has about a 3 cm skin tear that is too shallow and cannot be sutured effectively. Patient agrees that he does not think it can be sutured. It was cleaned thoroughly with saline jet lavage. It was then covered with Steri- Strips bacitracin and gauze. Patient was educated that it is a tear and may not heal well. He is to follow-up with his primary care provider in a day or 2. He is to return to the emergency department if he notices any signs of infection which he was educated on. Disposition Clinical Impression: Skin tear Disposition: HOME SELF-CARE Condition: Good Instructions: Skin Tear (ED) Additional Instructions: Please monitor for any signs of infection. Return to the emergency department if he notices any spreading redness, streaking redness, drainage, or fever. Otherwise follow-up with family doctor in a few days. Make sure to watch for difficulty healing of the area. Is patient prescribed a controlled substance at d/c from ED?: No Referrals: Skyler Steven MD [Primary Care Provider] - 1-2 days Time of Disposition: 15:09
== END 2017-08-27 15:16 | disposition home or self-care (01) ==
LOC: EC 14:21
DX: S81.812A Laceration without foreign body, left lower leg, initial encounter (principal); Z79.899 Other long term (current) drug therapy; W22.8XXA Striking against or struck by other objects, initial encounter; Y92.007 Garden or yard of unspecified non-institutional (private) residence as the place of occurrence of the external cause
CPT/HCPCS: 99282

== ENCOUNTER → 2017-12-20 | Outpatient (CLI) | payer BC ==
[2017-12-20 10:42] LABS: Basophils # (A) 0.1 k/uL (0-0.2); Basophils % (A) 1 %; Eosinophils # (A) 0.1 k/uL (0-0.7); Eosinophils % (A) 2 %; HCT 52.1 % (39.0-53.0); HGB 17.1 gm/dL (13.0-17.5); Lymphocytes # (A) 1.8 k/uL (1.0-4.8); Lymphocytes % (A) 25 %; MCH 31.2 pg (25.0-35.0); MCHC 32.8 g/dL (31.0-37.0); MCV 95.2 fL (80.0-100.0); Mean Platelet Volume 6.9; Monocytes # (A) 0.5 k/uL (0-1.0); Monocytes % (A) 7 %; Neutrophils # (A) 4.4 k/uL (1.3-7.7); Neutrophils % (A) 63 %; Platelet Count 267 k/uL (150-450); RBC 5.48 m/uL (4.30-5.90); RDW 13.2 % (11.5-15.5)
[2017-12-20 10:49] LABS: INR 1.1 (<1.2); Partial Thromboplastin Time 24.6 sec (22.0-30.0); Prothrombin Time 10.7 sec (9.0-12.0)
[2017-12-20 10:55] LABS: Calcium 9.7 mg/dL (8.4-10.2); Potassium 5.1 mmol/L (3.5-5.1)
== END | disposition home or self-care (01) ==
LOC: LABWHC1 10:04
PROVIDERS: ATTEND Internal Medicine Cardiovascular Disease
DX: I48.91 Unspecified atrial fibrillation (principal)
CPT/HCPCS: 36415; 80048; 85025; 85610; 85730

== ENCOUNTER → 2018-04-06 | Outpatient (CLI) | payer BC ==
[2018-04-06 09:15] LABS: HCT 52.5 % (39.0-53.0); HGB 17.6 gm/dL (13.0-17.5); MCH 32.2 pg (25.0-35.0); MCHC 33.6 g/dL (31.0-37.0); Mean Platelet Volume 6.9; Platelet Count 265 k/uL (150-450); RBC 5.48 m/uL (4.30-5.90); RDW 13.4 % (11.5-15.5); WBC 5.4 k/uL (3.8-10.6)
[2018-04-06 16:09] LABS: ALT 71 U/L (10-49); AST 39 U/L (14-35)
== END ==
LOC: LABWHC1 08:11
PROVIDERS: ATTEND Dermatology Dermatopathology
DX: L40.0 Psoriasis vulgaris (principal); Z79.899 Other long term (current) drug therapy
CPT/HCPCS: 36415; 84450; 84460; 85027

== ENCOUNTER → 2018-05-04 | Outpatient (CLI) | payer BC ==
[2018-05-04 17:50] LABS: ALT 40 U/L (10-49); AST 24 U/L (14-35)
== END | disposition home or self-care (01) ==
LOC: LABWHC1 09:16
PROVIDERS: ATTEND Dermatology Dermatopathology
DX: L40.0 Psoriasis vulgaris (principal); Z79.899 Other long term (current) drug therapy
CPT/HCPCS: 36415; 84450; 84460

== ENCOUNTER → 2018-05-23 | Outpatient (CLI) | payer BC ==
[2018-05-23 09:32] LABS: Basophils # (A) 0.1 k/uL (0-0.2); Basophils % (A) 1 %; Eosinophils # (A) 0.1 k/uL (0-0.7); Eosinophils % (A) 2 %; HCT 52.1 % (39.0-53.0); HGB 16.8 gm/dL (13.0-17.5); Lymphocytes # (A) 1.5 k/uL (1.0-4.8); Lymphocytes % (A) 28 %; MCH 31.5 pg (25.0-35.0); MCHC 32.3 g/dL (31.0-37.0); MCV 97.5 fL (80.0-100.0); Mean Platelet Volume 7.1; Monocytes # (A) 0.4 k/uL (0-1.0); Monocytes % (A) 7 %; Neutrophils # (A) 3.2 k/uL (1.3-7.7); Neutrophils % (A) 61 %; Platelet Count 219 k/uL (150-450); RBC 5.34 m/uL (4.30-5.90); RDW 13.9 % (11.5-15.5); WBC 5.3 k/uL (3.8-10.6)
[2018-05-23 09:34] LABS: Partial Thromboplastin Time 25.4 sec (22.0-30.0); Prothrombin Time 10.6 sec (9.0-12.0)
[2018-05-23 16:39] LABS: Anion Gap 8.3 mmol/L (4.00-12.00); Calcium 10.1 mg/dL (8.7-10.3); Carbon Dioxide 26.7 mmol/L (21.6-31.8); Potassium 4.9 mmol/L (3.5-5.5)
== END | disposition home or self-care (01) ==
LOC: LABWHC1 08:29
PROVIDERS: ATTEND Internal Medicine Cardiovascular Disease
DX: I48.91 Unspecified atrial fibrillation (principal)
CPT/HCPCS: 36415; 80048; 85025; 85610; 85730

== ENCOUNTER → 2018-07-19 | Outpatient (CLI) | payer BC ==
[2018-07-19 10:17] LABS: Basophils # (A) 0.1 k/uL (0-0.2); Basophils % (A) 1 %; Eosinophils # (A) 0.1 k/uL (0-0.7); Eosinophils % (A) 2 %; HCT 50.9 % (39.0-53.0); HGB 16.8 gm/dL (13.0-17.5); Lymphocytes # (A) 1.7 k/uL (1.0-4.8); Lymphocytes % (A) 30 %; MCH 31.7 pg (25.0-35.0); MCV 96.3 fL (80.0-100.0); Mean Platelet Volume 7.2; Monocytes # (A) 0.4 k/uL (0-1.0); Monocytes % (A) 7 %; Neutrophils # (A) 3.1 k/uL (1.3-7.7); Neutrophils % (A) 56 %; Platelet Count 249 k/uL (150-450); RBC 5.29 m/uL (4.30-5.90); RDW 14.9 % (11.5-15.5); WBC 5.5 k/uL (3.8-10.6)
[2018-07-19 10:28] LABS: Appearance,Urine Clear (Clear); Bilirubin,Urine Negative (Negative); Blood,Urine Negative (Negative); Color,Urine Yellow; Glucose,Urine (UA) Negative (Negative); Ketones,Urine Negative (Negative); Leukocyte Esterase,Urine Negative (Negative); Nitrite,Urine Negative (Negative); Protein,Urine Negative (Negative); Specific Gravity,Urine 1.024 (1.001-1.035); Urobilinogen,Urine <2.0 mg/dL (<2.0)
[2018-07-19 16:44] LABS: Albumin 4.5 g/dL (3.80-4.90); Albumin/Globulin Ratio 1.73 (1.60-3.17); Anion Gap 9.6 mmol/L (4.00-12.00); Calcium 9.7 mg/dL (8.7-10.3); Carbon Dioxide 23.4 mmol/L (21.6-31.8); Globulin 2.6 g/dL (1.6-3.3); LDL Cholesterol,Calculated 103.8 mg/dL (0.0-131.0); Potassium 4.7 mmol/L (3.5-5.5); Total Bilirubin 0.9 mg/dL (0.3-1.2); Total Protein 7.1 g/dL (6.2-8.2); VLDL Calculation 21.2 mg/dL (5.00-40.00)
== END | disposition home or self-care (01) ==
LOC: LABWHC1 09:24
PROVIDERS: ATTEND Dermatology Dermatopathology
DX: Z00.00 Encounter for general adult medical examination without abnormal findings (principal); L40.0 Psoriasis vulgaris; Z79.899 Other long term (current) drug therapy; Z12.5 Encounter for screening for malignant neoplasm of prostate
CPT/HCPCS: 80061; 80053; 84443; 85025; 81003; 82306; 36415; G0103

== ENCOUNTER → 2018-10-31 | Outpatient (CLI) | payer BC ==
[2018-10-31 09:21] LABS: HCT 52.7 % (39.0-53.0); HGB 16.9 gm/dL (13.0-17.5); MCH 30.7 pg (25.0-35.0); MCHC 32.1 g/dL (31.0-37.0); MCV 95.6 fL (80.0-100.0); Platelet Count 235 k/uL (150-450); RBC 5.51 m/uL (4.30-5.90); RDW 13.3 % (11.5-15.5); WBC 5.3 k/uL (3.8-10.6)
[2018-10-31 16:46] LABS: ALT 39 U/L (10-49); AST 28 U/L (14-35)
== END | disposition home or self-care (01) ==
LOC: LABWHC1 08:34
PROVIDERS: ATTEND Dermatology Dermatopathology
DX: L40.0 Psoriasis vulgaris (principal); Z79.899 Other long term (current) drug therapy
CPT/HCPCS: 36415; 84450; 84460; 85027

== ENCOUNTER → 2019-02-07 | Outpatient (CLI) | payer BC ==
[2019-02-07 16:48] LABS: HCT 46.9 % (39.0-53.0); HGB 15.4 gm/dL (13.0-17.5); MCH 31.9 pg (25.0-35.0); MCHC 32.8 g/dL (31.0-37.0); MCV 97.1 fL (80.0-100.0); Platelet Count 231 k/uL (150-450); RBC 4.83 m/uL (4.30-5.90); RDW 12.9 % (11.5-15.5); WBC 6.7 k/uL (3.8-10.6)
[2019-02-08 00:17] LABS: ALT 38 U/L (10-49); AST 25 U/L (14-35)
== END | disposition home or self-care (01) ==
LOC: LABWHC1 16:27
PROVIDERS: ATTEND Dermatology Dermatopathology
DX: L40.0 Psoriasis vulgaris (principal); Z79.899 Other long term (current) drug therapy
CPT/HCPCS: 36415; 84450; 84460; 85027

== ENCOUNTER → 2019-05-10 | Outpatient (CLI) | payer BC ==
[2019-05-10 09:46] LABS: HCT 52.2 % (39.0-53.0); HGB 17.3 gm/dL (13.0-17.5); MCH 31.6 pg (25.0-35.0); MCHC 33.1 g/dL (31.0-37.0); MCV 95.7 fL (80.0-100.0); Mean Platelet Volume 7.5; Platelet Count 241 k/uL (150-450); RBC 5.46 m/uL (4.30-5.90); RDW 13.1 % (11.5-15.5); WBC 7.2 k/uL (3.8-10.6)
[2019-05-10 16:27] LABS: ALT 39 U/L (10-49); AST 25 U/L (14-35)
== END | disposition home or self-care (01) ==
LOC: LABWHC1 08:47
PROVIDERS: ATTEND Dermatology Dermatopathology
DX: L40.0 Psoriasis vulgaris (principal); Z79.899 Other long term (current) drug therapy
CPT/HCPCS: 36415; 84450; 84460; 85027

== ENCOUNTER → 2019-08-09 | Outpatient (CLI) | payer BC ==
[2019-08-09 10:53] LABS: HGB 17.3 gm/dL (13.0-17.5); MCH 32.3 pg (25.0-35.0); MCHC 33.2 g/dL (31.0-37.0); MCV 97.4 fL (80.0-100.0); Mean Platelet Volume 7.5; Platelet Count 218 k/uL (150-450); RBC 5.34 m/uL (4.30-5.90); RDW 13.3 % (11.5-15.5); WBC 5.9 k/uL (3.8-10.6)
[2019-08-09 16:13] LABS: ALT 43 U/L (10-49); AST 29 U/L (14-35)
== END | disposition home or self-care (01) ==
LOC: LABWHC1 09:44
PROVIDERS: ATTEND Dermatology Dermatopathology
DX: L40.0 Psoriasis vulgaris (principal); Z79.899 Other long term (current) drug therapy
CPT/HCPCS: 36415; 84450; 84460; 85027; 86480

== ENCOUNTER → 2019-11-07 | Outpatient (CLI) | payer BC ==
[2019-11-07 15:05] LABS: HCT 53.3 % (39.0-53.0); HGB 17.3 gm/dL (13.0-17.5); MCH 31.7 pg (25.0-35.0); MCHC 32.4 g/dL (31.0-37.0); MCV 97.7 fL (80.0-100.0); Mean Platelet Volume 7.6; Platelet Count 226 k/uL (150-450); RBC 5.45 m/uL (4.30-5.90); WBC 8.1 k/uL (3.8-10.6)
[2019-11-07 18:48] LABS: ALT 39 U/L (10-49); AST 28 U/L (14-35)
== END | disposition home or self-care (01) ==
LOC: LABWHC1 13:56
PROVIDERS: ATTEND Dermatology Dermatopathology
DX: L40.0 Psoriasis vulgaris (principal); Z79.899 Other long term (current) drug therapy
CPT/HCPCS: 36415; 84450; 84460; 85027

== ENCOUNTER → 2020-02-07 | Outpatient (CLI) | payer BC ==
[2020-02-07 11:11] LABS: HCT 53.1 % (39.0-53.0); HGB 17.5 gm/dL (13.0-17.5); MCH 32.1 pg (25.0-35.0); MCV 97.3 fL (80.0-100.0); Mean Platelet Volume 7.5; Platelet Count 239 k/uL (150-450); RBC 5.46 m/uL (4.30-5.90); WBC 5.9 k/uL (3.8-10.6)
[2020-02-07 14:59] LABS: ALT 41 U/L (10-49); AST 26 U/L (14-35)
== END | disposition home or self-care (01) ==
LOC: LABWHC1 09:07
PROVIDERS: ATTEND Dermatology Dermatopathology
DX: L40.0 Psoriasis vulgaris (principal); Z79.899 Other long term (current) drug therapy
CPT/HCPCS: 36415; 84450; 84460; 85027

== ENCOUNTER → 2020-04-21 | Outpatient (CLI) | payer BC ==
[2020-04-21 11:15] LABS: Basophils # (A) 0.1 k/uL (0-0.2); Basophils % (A) 1 %; Eosinophils # (A) 0.1 k/uL (0-0.7); Eosinophils % (A) 1 %; HCT 53.8 % (39.0-53.0); HGB 17.6 gm/dL (13.0-17.5); Lymphocytes # (A) 1.7 k/uL (1.0-4.8); Lymphocytes % (A) 27 %; MCH 31.5 pg (25.0-35.0); MCHC 32.7 g/dL (31.0-37.0); MCV 96.4 fL (80.0-100.0); Mean Platelet Volume 7.6; Monocytes # (A) 0.4 k/uL (0-1.0); Monocytes % (A) 6 %; Neutrophils # (A) 3.8 k/uL (1.3-7.7); Neutrophils % (A) 62 %; Platelet Count 225 k/uL (150-450); RBC 5.58 m/uL (4.30-5.90); RDW 13.2 % (11.5-15.5); WBC 6.2 k/uL (3.8-10.6)
[2020-04-21 11:19] LABS: Appearance,Urine Clear (Clear); Bilirubin,Urine Negative (Negative); Blood,Urine Negative (Negative); Color,Urine Light Yellow; Glucose,Urine (UA) Negative (Negative); Ketones,Urine Negative (Negative); Leukocyte Esterase,Urine Negative (Negative); Nitrite,Urine Negative (Negative); Protein,Urine Negative (Negative); Specific Gravity,Urine 1.009 (1.001-1.035); Urobilinogen,Urine <2.0 mg/dL (<2.0)
[2020-04-21 14:44] LABS: African American GFR (CKD) 94.4 (60.0-200.0); Albumin 4.9 g/dL (3.80-4.90); Albumin/Globulin Ratio 2.13 (1.60-3.17); Anion Gap 8.2 mmol/L (4.00-12.00); Calcium 9.9 mg/dL (8.7-10.3); Carbon Dioxide 28.8 mmol/L (21.6-31.8); Chol/HDL Ratio 2.88; Globulin 2.3 g/dL (1.6-3.3); LDL Cholesterol,Calculated 90.6 mg/dL (0.0-131.0); Non-African American GFR(CKD) 81.4 (60.0-200.0); Potassium 4.3 mmol/L (3.5-5.5); Total Bilirubin 0.7 mg/dL (0.2-1.2); Total Protein 7.2 g/dL (6.2-8.2); VLDL Calculation 22.4 mg/dL (5.00-40.00)
[2020-04-21 14:51] LABS: Prostate Specific Antigen 1.2 ng/mL (0.0-4.5)
== END | disposition home or self-care (01) ==
LOC: LABWHC1 10:37
PROVIDERS: ATTEND Internal Medicine
DX: Z00.00 Encounter for general adult medical examination without abnormal findings (principal); Z12.5 Encounter for screening for malignant neoplasm of prostate; E55.9 Vitamin D deficiency, unspecified; I48.0 Paroxysmal atrial fibrillation
CPT/HCPCS: 36415; 80053; 80061; 81003; 82306; 84153; 84443; 85025

== ENCOUNTER → 2020-08-07 | Outpatient (CLI) | payer BC ==
[2020-08-07 17:06] LABS: HCT 51.2 % (39.6-50.0); HGB 16.9 g/dL (13.0-17.0); MCH 31.2 pg (27.0-32.0); MCV 94.5 fL (80.0-97.0); Mean Platelet Volume 10.7 fL (9.5-12.2); Platelet Count 256 X 10*3/uL (140-440); RBC 5.42 X 10*6/uL (4.40-5.60); WBC 5.98 X 10*3/uL (4.50-10.00)
[2020-08-07 20:58] LABS: ALT 40 U/L (10-49); AST 19 U/L (14-35)
== END | disposition home or self-care (01) ==
LOC: LABWHC1 10:20
PROVIDERS: ATTEND Dermatology Dermatopathology
DX: L40.0 Psoriasis vulgaris (principal); Z79.899 Other long term (current) drug therapy
CPT/HCPCS: 36415; 84450; 84460; 85027

== ENCOUNTER → 2020-11-30 | Outpatient (CLI) | payer BC ==
[2020-11-30 14:53] LABS: HCT 48.8 % (39.6-50.0); HGB 16.5 g/dL (13.0-17.0); MCH 31.8 pg (27.0-32.0); MCHC 33.8 g/dL (32.0-37.0); Mean Platelet Volume 10.5 fL (9.5-12.2); Platelet Count 224 X 10*3/uL (140-440); RBC 5.19 X 10*6/uL (4.40-5.60); RDW 13.2 % (11.5-14.5); WBC 5.64 X 10*3/uL (4.50-10.00)
[2020-11-30 16:34] LABS: ALT 32 U/L (10-49); AST 28 U/L (14-35)
== END | disposition home or self-care (01) ==
LOC: LABWHC1 09:31
PROVIDERS: ATTEND Dermatology Dermatopathology
DX: Z09 Encounter for follow-up examination after completed treatment for conditions other than malignant neoplasm (principal); Z08 Encounter for follow-up examination after completed treatment for malignant neoplasm; L40.0 Psoriasis vulgaris; Z85.828 Personal history of other malignant neoplasm of skin; Z87.2 Personal history of diseases of the skin and subcutaneous tissue
CPT/HCPCS: 36415; 84450; 84460; 85027

== ENCOUNTER → 2021-03-03 | Outpatient (CLI) | payer BC ==
[2021-03-03 19:04] LABS: HCT 48.6 % (39.6-50.0); MCH 30.9 pg (27.0-32.0); MCHC 32.9 g/dL (32.0-37.0); Mean Platelet Volume 10.9 fL (9.5-12.2); Platelet Count 223 X 10*3/uL (140-440); RBC 5.17 X 10*6/uL (4.40-5.60); RDW 13.2 % (11.5-14.5); WBC 6.42 X 10*3/uL (4.50-10.00)
[2021-03-03 23:17] LABS: ALT 40 U/L (10-49); AST 28 U/L (14-35)
== END | disposition home or self-care (01) ==
LOC: LABWHC1 12:45
DX: L40.0 Psoriasis vulgaris (principal); Z79.899 Other long term (current) drug therapy
CPT/HCPCS: 36415; 84450; 84460; 85027

== ENCOUNTER → 2022-09-22 | Outpatient (CLI) | payer BC ==
[2022-09-22 15:36] LABS: ALT 45 U/L (10-49); AST 28 U/L (14-35); Albumin 4.7 d/dL (3.8-4.9); Albumin/Globulin Ratio 1.74 Ratio (1.60-3.17); Alkaline Phosphatase 76 U/L (41-126); Blood Urea Nitrogen 15.3 mg/dL (9.0-27.0); Calcium 10.3 mg/dL (8.7-10.3); Carbon Dioxide 28.9 mmol/L (21.6-31.8); Chloride 101 mmol/L (96-109); Globulin 2.7 d/dL (1.6-3.3); Glucose 94 mg/dL (70-110); Potassium 5.4 mmol/L (3.5-5.5); Sodium 140 mmol/L (135-145); Total Bilirubin 0.5 mg/dL (0.3-1.2); Total Protein 7.4 d/dL (6.2-8.2)
[2022-09-22 16:36] LABS: Basophils # (A) 0.07 X 10*3/uL (0.00-0.10); Basophils % (A) 1.2 %; Eosinophils # (A) 0.07 X 10*3/uL (0.04-0.35); Eosinophils % (A) 1.2 %; HCT 52.5 % (39.6-50.0); HGB 17.4 d/dL (12.0-15.0); Lymphocytes # (A) 1.58 X 10*3/uL (0.90-5.00); Lymphocytes % (A) 27.4 %; MCH 31.9 pg (27.0-32.0); MCHC 33.1 d/dL (32.0-37.0); MCV 96.2 FL (80.0-97.0); Mean Platelet Volume 10.2 FL (9.5-12.2); Monocytes % (A) 10.4 %; NRBC Per 100 WBC 0 X 10*3/uL (0.00-0.01); Neutrophils # (A) 3.43 X 10*3/uL (1.80-7.70); Neutrophils % (A) 59.6 %; Platelet Count 250 X 10*3/uL (140-440); RBC 5.46 X 10*6/uL (4.40-5.60); WBC 5.76 X 10*3/uL (4.50-10.00)
== END | disposition home or self-care (01) ==
LOC: LABWHC1 09:00
PROVIDERS: ATTEND Dermatology
DX: L40.0 Psoriasis vulgaris (principal)
CPT/HCPCS: 36415; 80053; 85025

== ENCOUNTER → 2023-03-13 | Outpatient (CLI) | payer BC ==
[2023-03-13 18:52] LABS: HCT 51.4 % (39.6-50.0); HGB 16.9 g/dL (13.0-17.0); MCH 31.2 pg (27.0-32.0); MCHC 32.9 g/dL (32.0-37.0); Mean Platelet Volume 10.5 FL (9.5-12.2); NRBC Per 100 WBC 0 X 10*3/uL (0.00-0.01); Platelet Count 237 X 10*3/uL (140-440); RBC 5.41 X 10*6/uL (4.40-5.60); RDW 12.9 % (11.5-14.5)
[2023-03-13 19:02] LABS: ALT 35 U/L (10-49); AST 26 U/L (14-35)
== END | disposition home or self-care (01) ==
LOC: LABWHC1 10:37
PROVIDERS: ATTEND Nurse Practitioner Family
DX: L40.0 Psoriasis vulgaris (principal); Z79.899 Other long term (current) drug therapy
CPT/HCPCS: 36415; 84450; 84460; 85027